=== PATIENT | female | born 1965 | race Caucasian/White ===

== ENCOUNTER 2020-07-19 23:49 | Observation (INO) | payer OTHER, SELFPAY ==
[~2020-07-19] VITALS: Ht 152.4 cm; Wt 63.5 kg
[2020-07-19 23:55] VITALS: BP 133/86
[2020-07-20] MEDS ORDERED: ASPIRIN 81 MG TAB.CHEW PO ONE (00:30)
--- NOTE | 2020-07-20 00:33 | NUR ---
PT STARTED HAVING LEFT SIDED CHEST PRESSURE X 3 HRS AGO. RATES PRESSURE 9/10, NONRADIATING. DENIES ANY SOB. NO N/V/D. NO PRIOR HX OF HEART ISSUES. PT SAID SHE TOOK HER BLOOD PRESSURE AT HOME AND IT WAS ELEVATED, WAS ALSO HAVING THROBBING TO THE BACK OF HER HEAD. DENIES DIZZINESS. PT PLACED IN GOWN. PT ON BEDSIDE MONITOR. BED IN LOWEST POSITION AND SIDERAIL UP X 1. NKA NO HX
--- NOTE | 2020-07-20 00:41 | NUR ---
X-RAY AT BEDSIDE
[2020-07-20 00:53] LABS: BASOPHILS % (AUTO) 0.5 % (0.0-2.0); EOSINOPHILS % (AUTO) 0.3 % (0.0-4.0); HEMATOCRIT 37.2 % (36-48); HEMOGLOBIN 12.6 g/dL (12.0-16.0); LYMPHOCYTES # (AUTO) 0.9 K/uL (2.5-16.5); LYMPHOCYTES % (AUTO) 17.6 % (20.5-51.1); MEAN CORPUSCULAR HEMOGLOBIN 33 pg (27-31); MEAN CORPUSCULAR HGB CONC 34 g/dL (33-37); MEAN CORPUSCULAR VOLUME 97.4 fL (80-94); MONOCYTES # (AUTO) 0.6 K/uL (0.8-1.0); MONOCYTES % (AUTO) 11.7 % (1.7-9.3); NEUTROPHILS # (AUTO) 3.7 K/uL (1.8-7.7); NEUTROPHILS % (AUTO) 69.9 % (42.2-75.2); PLATELET COUNT (AUTO) 182 K/uL (140-450); RED BLOOD CELL COUNT(AUTO) 3.82 MIL/uL (4.20-5.40); RED CELL DISTRIBUTION WIDTH 13.3 % (11.6-13.7); WHITE BLOOD COUNT (AUTO) 5.3 K/uL (4.8-10.8)
--- NOTE | 2020-07-20 00:54 | NUR ---
IV ESTABLISHED AND LABS DRAWN AND GIVEN TO STRIP PICKER
[2020-07-20] MEDS ORDERED: FUROSEMIDE 40 MG/4 ML VIAL IVP STA (01:01)
--- NOTE | 2020-07-20 01:20 | NUR ---
PT UP AND AMBULATED TO RESTROOM. UA CUP GIVEN TO PT.
[2020-07-20 01:38] LABS: ANION GAP 16.2 (8-16); CARBON DIOXIDE 25.8 mmol/L (21-32); CREATININE 0.6 mg/dL (0.6-1.3)
[2020-07-20 01:44] LABS: TOTAL BILIRUBIN 0.5 mg/dL (0.0-1.0)
--- NOTE | 2020-07-20 01:52 | NUR ---
ALISSON COLLECTED AND TAKEN TO LAB
--- NOTE | 2020-07-20 03:00 | NUR ---
PT REMAINS ON BEDSIDE MONITOR. CURRENTLY ON CELL PHONE. NO APPARENT DISTRESS NOTED AT THIS TIME.
--- NOTE | 2020-07-20 04:27 | NUR ---
PT SLEEPING. RESPIRATIONS REGULAR EVEN AND UNLABORED. REMAINS ON BEDSIDE MONITOR.
--- NOTE | 2020-07-20 05:53 | NUR ---
PT SLEEPING. RESPIRATIONS REGULAR EVEN AND UNLABORED. REMAINS ON BEDSIDE MONITOR.
--- NOTE | 2020-07-20 07:04 | NUR ---
Report received from ANGELINA Doyle
--- NOTE | 2020-07-20 07:04 | NUR ---
Pt report given to LOIS ALFARO. Transfer of care at this time.
--- NOTE | 2020-07-20 07:17 | NUR ---
Patient appears to be resting comfortably in bed. Vital Signs within normal limits. Respirations even and unlabored. CM = sr without ectopy.
--- NOTE | 2020-07-20 10:00 | NUR ---
AWAKE, ALERT. DENIES PAIN AT THIS TIME.
--- NOTE | 2020-07-20 12:30 | NUR ---
SITTING UP IN BED EATING LUNCH, TOLERATED WELL.
[2020-07-20] MEDS ORDERED: POTASSIUM CHLORIDE 10 MEQ TABER PO PRN (16:40)
[2020-07-20] MEDS ORDERED: MAG SULF 2000 MG/WATER PREMIX 50 ML IV PRN (16:40)
[2020-07-20] MEDS ORDERED: ACETAMINOPHEN 325 MG TAB PO PRN (16:40)
[2020-07-20] MEDS ORDERED: ONDANSETRON 4 MG/2 ML VIAL IM/IVP PRN (16:40)
[2020-07-20] MEDS ORDERED: DOCUSATE SODIUM 100 MG GELCAP PO PRN (16:40)
[2020-07-20] MEDS ORDERED: ZOLPIDEM 5 MG TAB PO PRN (16:40)
[2020-07-20] MEDS ORDERED: LORazepam 2 MG/ML VIAL IM/IVP PRN (16:40)
[2020-07-20] MEDS ORDERED: HYDROcodone/APAP 5/325 MG 1 TAB TAB PO PRN (16:40)
[2020-07-20] MEDS ORDERED: MORPHINE SULFATE 2 MG/ML SYR IVP PRN (16:40)
[2020-07-20] MEDS ORDERED: NITROGLYCERIN 0.4 MG TAB SL PRN (16:40)
[2020-07-20 18:05] LABS: MAGNESIUM 2.3 mg/dL (1.8-2.4); PHOSPHORUS 4.2 mg/dL (2.5-4.9); THYROID STIMULATING HORMONE 1.22 uIU/mL (0.34-3.74)
[2020-07-20 18:42] LABS: PROTHROMBIN TIME 10.2 secs (10.8-13.4)
[2020-07-20] MEDS: NACL 0.9% 1,000 ML IV SCH (19:16)
--- NOTE | 2020-07-20 19:16 | NUR ---
RECEIVED REPORT FROM ANGELINA ABREU FOR CONTINUATION OF CARE.
--- NOTE | 2020-07-20 20:19 | NUR ---
PT IS SITTING UPRIGHT IN HIGH FLOWLERS FOR COMFORT. BED IS LOCKED AND IN LOWEST POSITION. PT IS CONNECTED TO THE SHANK SKINNER SAO2 @98%. PT IS NOT IN ANY ACUTE DISTRESS AT THIS TIME. SIDE RAILSX1. WILL CONTINUE TO MONITOR
[2020-07-20] MEDS: METOPROLOL 25 MG TAB PO SCH (21:00)
[2020-07-20] MEDS ORDERED: ATORVASTATIN 20 MG TAB PO SCH (21:00)
--- NOTE | 2020-07-20 21:25 | NUR ---
REPORT CALLED BY PHONE TO ANGELINA LONGORIA FOR TRANSFER OF CARE
--- NOTE | 2020-07-20 21:40 | NUR ---
Patient will be admitted to care of DR. PINK. Admited to TELEMETRY. Will go to room 106A. Belongings list completed. Report to ANGELINA LONGORIA.
--- NOTE | 2020-07-20 21:40 | NUR ---
RECEIVED PATIENT IN STABLE CONDITION FROM ER NURSE VIA [facility] FOR CONTINUITY OF CARE. AAOX4. RESPIRATIONS EVEN, UNLABORED. NO SOB. NO S/S RESPIRATORY DISTRESS. NO C/O PAIN. NO S/S ACUTE DISTRESS. SKIN WARM, DRY AND INTACT. IV SITE TO LEFT AC 22G PATENT/INTACT, INFUSING FLUIDS WELL. ABDOMEN SOFT, NONTENDER, NONDISTENDED. BOWEL SOUNDS ACTIVE X4 QUADRANTS. PATIENT IS CONTINENT OF B/B. PATIENT ORIENTED TO ROOM/STAFF AND CALL LIGHT. PLAN OF CARE DISCUSSED. MRSA SCREEN COMPLETED. CALL LIGHT WITHIN REACH AT ALL TIMES.
[2020-07-20 22:52] LABS: APPEARANCE,URINE CLEAR (CLEAR); BILIRUBIN,URINE NEGATIVE (NEGATIVE); BLOOD, URINE NEGATIVE (NEGATIVE); COLOR,URINE YELLOW (YELLOW); LEUKOCYTE ESTERASE ,URINE NEGATIVE (NEGATIVE); NITRITE, URINE NEGATIVE (NEGATIVE); UGLUCOSE NEGATIVE (NEGATIVE)
--- NOTE | 2020-07-20 23:00 | NUR ---
PATIENT IS ASLEEP. NO S/S ACUTE DISTRESS. CALL LIGHT WITHIN REACH.
[2020-07-20 23:15] LABS: BARBITURATE, URINE NEGATIVE ng/ml (NEG <=200); BENZODIAZEPINE, URINE NEGATIVE ng/mL (NEG <=200); CANNABINOID, URINE NEGATIVE ng/mL (NEG <=50); COCAINE, URINE NEGATIVE ng/mL (NEG <=300); OPIATE, URINE NEGATIVE ng/mL (NEG <=2000); PHENCYCLIDINE SCREEN,URINE NEGATIVE ng/mL (NEG <=25)
[2020-07-21] VITALS: BP 104/55
--- NOTE | 2020-07-21 01:30 | NUR ---
PATIENT RESTING COMFORTABLY IN BED. NO S/S ACUTE DISTRESS. NO C/O PAIN. CALL LIGHT WITHIN REACH.
--- NOTE | 2020-07-21 03:00 | NUR ---
PATIENT HAS EPISODES OF LOW HR RANGING FROM 40-55 BPM. PATIENT IS EASILY AROUSABLE AND IN NO DISTRESS. NO C/O PAIN. CALL LIGHT WITHIN REACH.
[2020-07-21 04:00] VITALS: BP 90/49
--- NOTE | 2020-07-21 05:18 | NUR ---
PATIENT IS ASLEEP. NO S/S ACUTE DISTRESS. CALL LIGHT WITHIN REACH.
--- NOTE | 2020-07-21 06:35 | NUR ---
TRANS IN FROM TELE THIS 55 YEAR OLD FEMALE PATIENT FOR CONTINUITY OF CARE. ASSISTED IN ICU 6; ALERT AND ORIENTED, ABLE TO MOVE LIMBS FREELY; BREATHING EVEN AND UNLABORED ON ROOM AIR; S02 99%. CARDIACSCOPE SHOWS ON SINUS RHYTHM HR 60/MIN NO ARRHTYMIAS SEEN. IVF IN PROGRESS NORMAL SALINE AT 60 ML/HR VIA G22 IV CANNULA ON LEFT AC; INTACT. V/S 117/77 HR 63/MIN. DENIES ANY PAIN.
[2020-07-21 06:46] LABS: BASOPHILS % (AUTO) 0.5 % (0.0-2.0); EOSINOPHILS % (AUTO) 0.8 % (0.0-4.0); HEMATOCRIT 41.6 % (36-48); HEMOGLOBIN 14.1 g/dL (12.0-16.0); LYMPHOCYTES % (AUTO) 57.4 % (20.5-51.1); MEAN CORPUSCULAR HEMOGLOBIN 34 pg (27-31); MEAN CORPUSCULAR HGB CONC 34 g/dL (33-37); MEAN CORPUSCULAR VOLUME 98.8 fL (80-94); MONOCYTES # (AUTO) 0.4 K/uL (0.8-1.0); MONOCYTES % (AUTO) 11.9 % (1.7-9.3); NEUTROPHILS % (AUTO) 29.4 % (42.2-75.2); PLATELET COUNT (AUTO) 187 K/uL (140-450); RED BLOOD CELL COUNT(AUTO) 4.21 MIL/uL (4.20-5.40); RED CELL DISTRIBUTION WIDTH 13.7 % (11.6-13.7); WHITE BLOOD COUNT (AUTO) 3.5 K/uL (4.8-10.8)
[2020-07-21 07:06] LABS: ANION GAP 11.4 (8-16); CARBON DIOXIDE 28.3 mmol/L (21-32); CREATININE 0.5 mg/dL (0.6-1.3); POTASSIUM 3.7 mmol/L (3.5-5.1)
--- NOTE | 2020-07-21 07:10 | NUR ---
ENDORSED TO MORNING SHIFT RN BRENDA FOR CONTINUITY OF CARE.
[2020-07-21 07:14] LABS: MAGNESIUM 2.3 mg/dL (1.8-2.4); PHOSPHORUS 4.3 mg/dL (2.5-4.9)
--- NOTE | 2020-07-21 07:30 | NUR ---
RECEIVED REPORT FROM RON RN PT. IS AWAKE AND ALERT WELL ORIENTED IV FLUID @22 RT AC INFUSING NS 60 ML/HR SKIN DRY AND INTACT DENIED CHEST PAIN.
[2020-07-21 08:00] VITALS: BP 138/81
--- NOTE | 2020-07-21 08:30 | NUR ---
BREAKFAST TOOH ABOUT 30% AND DRINK HER OWN JUICE.
--- NOTE | 2020-07-21 08:30 | NUR ---
VISIT BY DR. PINK AT BED SIDE .ORDER RECIVED.
[2020-07-21] MEDS ORDERED: FAMOTIDINE 20 MG TAB PO SCH (09:00)
[2020-07-21] MEDS ORDERED: ASPIRIN 81 MG TAB.CHEW PO SCH (09:00)
[2020-07-21] MEDS ORDERED: lisinopriL 5 MG TAB PO SCH (09:00)
--- NOTE | 2020-07-21 09:00 | NUR ---
PT REFUSE HEPARIN SUBCUE , DR. PINK AWARE.
[2020-07-21] MEDS: METOPROLOL 25 MG TAB PO SCH (09:06)
[2020-07-21 10:00] VITALS: BP 180/80
--- NOTE | 2020-07-21 11:11 | NUR ---
PT TRANSFER TO TELE IN WHEEL CHAIR BY CARLOS
[2020-07-21] MEDS: NACL 0.9% 1,000 ML IV SCH (11:15)
--- NOTE | 2020-07-21 11:15 | NUR ---
RECEIVED PATIENT FROM ICU. PT IS A/O X4. PT DENIES CHEST PAIN. NO RESPIRATORY DISTRESS. POC DISCUSSED. PT DEMONSTRATED UNDERSTANDING.
--- NOTE | 2020-07-21 14:00 | NUR ---
PT IS CALM. NO S/S OF DISTRESS. DENIES CHEST PAIN. NEEDS ATTENDED.
[2020-07-21 16:00] VITALS: BP 121/77
--- NOTE | 2020-07-21 16:03 | NUR ---
OFF FOR TREADMILL STRESS TEST. PROCEDURE DISCUSSED. PT DEMONSTRATED UNDERSTANDING.
--- NOTE | 2020-07-21 17:31 | NUR ---
PT ARRIVED FROM STRESS TEST PROCEDURE. PT DENIES CHEST PAIN. NO SOB NOTED. WILL CONTINUE TO MONITOR.
--- NOTE | 2020-07-21 19:05 | NUR ---
RECEIVED REPORT OF PT.CONDITION IS STABLE.NO C/O PAIN OR ANY DISCOMFORT AT THIS TIME.TELE ON AND SHOWING SR.CALL LIGHT IN REACH.WILL CONT.MONITORING.
--- NOTE | 2020-07-21 19:25 | NUR ---
ENDORSED PT TO NIGHT RN. POC DISCUSSED. PT RESTING AND CALM. NO CHANGE OF CONDITION. CALLED DR. PINK FOR PT'S REQUEST TO GO HOME. AWAITING FOR NEW ORDERS. ENDORSED RN TO FF UP.
[2020-07-21 20:10] VITALS: BP 130/77
--- NOTE | 2020-07-21 23:04 | NUR ---
PT WANTED TO SIGN AMA AND GO HOME.INFORMED .PT SIGNED AMA AND LEFT HOSPITAL IN STABLE CONDITION.
[2020-07-22] MEDS ORDERED: ASPI81CT95 PO (08:04)
[2020-07-22 08:07] LABS: T4 (THYROXINE) 7.2 ug/dL (4.5-12.0)
== END 2020-07-21 22:30 | disposition left against medical advice (07) ==
LOC: MED 23:49 → MTU 07-20 02:09 → MIC 07-21 06:55 → MTU 07-21 12:48
DX: R07.9 Chest pain, unspecified (principal); Z20.828 Contact with and (suspected) exposure to other viral communicable diseases; R06.02 Shortness of breath; F41.9 Anxiety disorder, unspecified; D69.6 Thrombocytopenia, unspecified; Z79.899 Other long term (current) drug therapy
CPT/HCPCS: 36415; 71045; 80048; 80053; 80061; 80305; 81003; 82150; 83036; 83690; 83735; 83880; 84100; 84134; 84436; 84443; 84484; 85025; 85610; 85730; 87081; 87426; 93005; 93017; 93307; 96361; 96372; 96374; 99285; G0378; J1644; J1940